=== PATIENT | female | born 1930 | race Caucasian/White ===

== ENCOUNTER 2016-07-16 08:31 | Outpatient (CLI) | payer MEDICARE, OTHER ==
[2014-12-23 14:14] VITALS: BP 140/58
== END 2016-07-16 08:40 ==
LOC: POD 08:31
PROVIDERS: ATTEND Podiatrist Public Medicine
DX: E11.42 Type 2 diabetes mellitus with diabetic polyneuropathy (principal); B35.1 Tinea unguium; L84 Corns and callosities; L60.0 Ingrowing nail; M79.674 Pain in right toe(s); M79.675 Pain in left toe(s)
CPT/HCPCS: 11721; G0463

== ENCOUNTER 2016-07-22 10:34 | Outpatient (CLI) | payer MEDICARE, OTHER ==
[2014-12-23 14:14] VITALS: BP 140/58
== END 2016-07-22 10:35 ==
LOC: LAB 10:34
PROVIDERS: ATTEND Family Medicine
DX: E11.9 Type 2 diabetes mellitus without complications (principal); C50.919 Malignant neoplasm of unspecified site of unspecified female breast
CPT/HCPCS: 36415; 83036

== ENCOUNTER 2016-11-05 09:40 | Outpatient (CLI) | payer MEDICARE, OTHER ==
[2014-12-23 14:14] VITALS: BP 140/58
== END 2016-11-05 09:42 ==
LOC: POD 09:40
PROVIDERS: ATTEND Podiatrist Public Medicine
DX: B35.1 Tinea unguium (principal); L60.0 Ingrowing nail; M20.41 Other hammer toe(s) (acquired), right foot; M20.42 Other hammer toe(s) (acquired), left foot; M79.675 Pain in left toe(s); M79.674 Pain in right toe(s); M20.11 Hallux valgus (acquired), right foot; M20.12 Hallux valgus (acquired), left foot; L84 Corns and callosities; E11.42 Type 2 diabetes mellitus with diabetic polyneuropathy; M79.672 Pain in left foot
CPT/HCPCS: 10060; 11721; G0463

== ENCOUNTER 2017-02-04 09:29 | Outpatient (CLI) | payer MEDICARE, OTHER ==
[2014-12-23 14:14] VITALS: BP 140/58
== END 2017-02-04 09:30 ==
LOC: POD 09:29
PROVIDERS: ATTEND Podiatrist Public Medicine
DX: B35.1 Tinea unguium (principal); L84 Corns and callosities; M20.12 Hallux valgus (acquired), left foot; M20.11 Hallux valgus (acquired), right foot; L60.0 Ingrowing nail; M20.42 Other hammer toe(s) (acquired), left foot; M20.41 Other hammer toe(s) (acquired), right foot; M79.672 Pain in left foot; M79.675 Pain in left toe(s); M79.674 Pain in right toe(s); E11.42 Type 2 diabetes mellitus with diabetic polyneuropathy
CPT/HCPCS: 11055; 11721; G0463

== ENCOUNTER 2017-02-26 09:12 | Outpatient (CLI) | payer MEDICARE, OTHER ==
[2014-12-23 14:14] VITALS: BP 140/58
[2017-02-26 09:25] LABS: MEAN CORPUSCULAR HEMOGLOBIN 32.3 pg (28.0-34.0); MEAN CORPUSCULAR VOLUME 96.5 fl (80.0-100.0)
[2017-02-26 10:02] LABS: eGFR (African) > 60; eGFR (Non-African) 41
== END 2017-02-26 09:14 ==
LOC: LAB 09:12
PROVIDERS: ATTEND Family Medicine
DX: E11.9 Type 2 diabetes mellitus without complications (principal); I10 Essential (primary) hypertension
CPT/HCPCS: 36415; 80053; 83036; 85027

== ENCOUNTER 2017-05-06 09:17 | Outpatient (CLI) | payer MEDICARE, OTHER ==
[2014-12-23 14:14] VITALS: BP 140/58
== END 2017-05-06 09:20 ==
LOC: POD 09:17
PROVIDERS: ATTEND Podiatrist Public Medicine
DX: E11.42 Type 2 diabetes mellitus with diabetic polyneuropathy (principal); B35.1 Tinea unguium; L84 Corns and callosities; L60.0 Ingrowing nail; M79.672 Pain in left foot; M79.674 Pain in right toe(s); M79.675 Pain in left toe(s); M20.11 Hallux valgus (acquired), right foot; M20.12 Hallux valgus (acquired), left foot; M20.41 Other hammer toe(s) (acquired), right foot; M20.42 Other hammer toe(s) (acquired), left foot
CPT/HCPCS: 11721; G0463

== ENCOUNTER 2017-06-29 11:31 | Outpatient (CLI) | payer MEDICARE, OTHER ==
[2014-12-23 14:14] VITALS: BP 140/58
== END 2017-06-29 11:32 ==
LOC: LAB 11:31
PROVIDERS: ATTEND Family Medicine
DX: E11.9 Type 2 diabetes mellitus without complications (principal)
CPT/HCPCS: 36415; 83036

== ENCOUNTER 2017-08-05 09:02 | Outpatient (CLI) | payer MEDICARE, OTHER ==
[2014-12-23 14:14] VITALS: BP 140/58
== END 2017-08-05 09:03 ==
LOC: POD 09:02
PROVIDERS: ATTEND Podiatrist Public Medicine
DX: E11.42 Type 2 diabetes mellitus with diabetic polyneuropathy (principal); B35.1 Tinea unguium; L84 Corns and callosities; L60.0 Ingrowing nail; M79.672 Pain in left foot; M79.674 Pain in right toe(s); M79.675 Pain in left toe(s); M20.11 Hallux valgus (acquired), right foot; M20.12 Hallux valgus (acquired), left foot; M20.41 Other hammer toe(s) (acquired), right foot; M20.42 Other hammer toe(s) (acquired), left foot
CPT/HCPCS: 11721; G0463

== ENCOUNTER 2017-11-18 09:25 | Outpatient (CLI) | payer MEDICARE, OTHER ==
[2014-12-23 14:14] VITALS: BP 140/58
== END 2017-11-18 09:26 ==
LOC: POD 09:25
PROVIDERS: ATTEND Podiatrist Public Medicine
DX: E11.42 Type 2 diabetes mellitus with diabetic polyneuropathy (principal); B35.1 Tinea unguium; L84 Corns and callosities; L60.0 Ingrowing nail; M79.672 Pain in left foot; M79.674 Pain in right toe(s); M79.675 Pain in left toe(s); M20.11 Hallux valgus (acquired), right foot; M20.12 Hallux valgus (acquired), left foot; M20.41 Other hammer toe(s) (acquired), right foot; M20.42 Other hammer toe(s) (acquired), left foot
CPT/HCPCS: 11721; G0463

== ENCOUNTER 2017-12-28 10:15 | Outpatient (CLI) | payer MEDICARE, OTHER ==
[2014-12-23 14:14] VITALS: BP 140/58
[2017-12-28 11:14] LABS: eGFR (African) > 60; eGFR (Non-African) > 60
[2017-12-28 11:16] LABS: MEAN CORPUSCULAR HEMOGLOBIN 32.9 pg (28.0-34.0); MEAN CORPUSCULAR VOLUME 99.7 fl (80.0-100.0)
== END 2017-12-28 10:16 ==
LOC: LAB 10:15
PROVIDERS: ATTEND Family Medicine
DX: E11.9 Type 2 diabetes mellitus without complications (principal); I10 Essential (primary) hypertension
CPT/HCPCS: 36415; 80053; 83036; 85027